=== PATIENT | male | born 2000 | race Caucasian/White ===

== ENCOUNTER 2023-06-15 02:38 | Emergency (ER) | payer MEDICAID, SELFPAY ==
--- NOTE | ~2023-06-15 | XR_ITS ---
EXAMINATION: XR CHEST CLINICAL INFORMATION: Difficulty breathing. COMPARISON: None available. TECHNIQUE: Frontal view of the chest was obtained. FINDINGS: No significant abnormality is noted involving the heart, lungs, mediastinum, bony thorax or soft tissues. XR/XR chest 1V IMPRESSION: Unremarkable examination.
[2023-06-15 02:49] VITALS: BP 117/70; PULSE 75; RESP 20; TEMP 36.7; O2SAT 95; BMI 32.8
[2023-06-15 04:51] VITALS: PULSE 78; RESP 16; O2SAT 96
[2023-06-15] MEDS: Albuterol Sulfate 7.5 MG, Albuterol Sulfate (0.083%) 2.5 MG 10 MG INHALE (04:51)
[2023-06-15] MEDS: predniSONE 10 MG TABLET 50 MG PO (05:05)
--- NOTE | 2023-06-15 05:08 | ED.ASTHMA ---
HPI - Asthma General Chief Complaint: Upper Respiratory Symptoms Stated Complaint: asthma attack Time Seen by Provider: 06/15/23 03:46 Source: patient Mode of arrival: ambulatory History of Present Illness HPI Narrative: 23-year-old male with history of asthma comes in with worsening shortness of breath and wheezing that started at approximately midnight, states he lost his inhaler but denies any other symptoms such as sore throat/ear pain/fever/chills. Related Data Previous Rx's ?Medication ?Instructions ?Recorded albuterol sulfate 90 mcg/actuation 2 puff inhalation Q4-6H PRN 06/15/23 aerosol inhaler (Ventolin HFA) shortness of breath or wheezing #8.5 grams prednisone 50 mg tablet 50 mg PO DAILY 4 days #4 tabs 06/15/23 Allergies Allergy/AdvReac Type Severity Reaction Status Date / Time dog dander Allergy Wheezing Verified 06/15/23 02:51 Review of Systems Review of Systems: Pertinent positives and negatives as stated in HPI [facility] Past Medical History Source: nursing notes reviewed Social History Social History Alcohol intake: never Smoked in Last 30 Days: No Use of substances other than those prescribed or required for medical reasons: Yes Substance Use Type: Marijuana Substance Use Frequency: Socially Last Used Substance: Hours (ago) Any prior treatment program specific to substance use: No Advance Directives: No Advance Directives Information Provided: No Physical Exam Vital Signs: Vital Signs: Last Vital Signs Temp 98.0 F 06/15/23 02:49 Pulse 100 06/15/23 05:26 Resp 20 06/15/23 05:26 BP 117/70 06/15/23 02:49 Pulse Ox 95 06/15/23 02:49 O2 Del Method Room Air 06/15/23 02:49 BMI result Body Mass Index 32.8 VITAL SIGNS: Reviewed. GENERAL: Well developed, well nourished, in no acute distress. HEAD: Normocephalic/atraumatic EYES: PERRLA, EOMI EARS: Ext canals without abnormality, TMs non-bulging and non-erythematous NOSE: Nares patent bilateral OROPHARYNX: no oral lesions noted, posterior pharynx clear and non-erythematous without noted tonsillar enlargement/erythema/exudates NECK: Supple, no adenopathy LUNGS: Decreased bilaterally with trace expiratory wheeze. SpO2<95> CARDIOVASCULAR: Regular rate and rhythm without noted murmurs ABDOMEN: Soft, non-tender, non-distended with bowel sounds. MUSCULOSKELETAL: No tenderness, deformities, or effusions noted on gross inspection. EXTREMITIES: No cyanosis, clubbing or edema. SKIN: Inspection of the skin reveals no rashes NEUROLOGIC: Alert and oriented x 4. Strength and sensation to light touch were grossly intact x 4. Medications Administered Discontinued Medications Generic Name Dose Route Start Last Admin Trade Name Pelon PRN Reason Stop Dose Admin Albuterol Sulfate 7.5 mg/ 10 mg 06/15/23 04:45 06/15/23 04:51 Albuterol Sulfate 2.5 mg INHALE 06/15/23 04:46 10 mg ONCE ONE Administration Albuterol Sulfate 2.5 mg/ 5 mg 06/15/23 05:23 06/15/23 05:25 Albuterol Sulfate 2.5 mg INHALE 06/15/23 05:24 5 mg ONCE ONE Administration Prednisone 50 mg 06/15/23 04:38 06/15/23 05:05 Prednisone 10 Mg Tablet PO 06/15/23 04:39 50 mg ONCE ONE Administration Medical Decision Making Medical Decision Making MDM Narrative: 23-year-old male with history and clinical presentation, DDX: Acute asthma exacerbation. INTERVENTION: ED bronch protocol, prednisone, chest x-ray I reviewed chest x-ray which is negative for infiltrates or venous congestion otherwise my interpretation is in agreement with radiology's impression. 0549: On re-evaluation patient reports improvement and on auscultation of lungs there is good air movement noted with minimal expiratory wheeze, no tachypnea and oxygenating well on room air. Patient is discharged. Differential Diagnosis Differential Diagnoses: The differential diagnosis associated with the presentation includes Please see the discussion above Admission/Observation Consideration of admission/observation: Escalation of care including admission/observation considered Please see the discussions above Radiology Impression Discussion of test interpretation with radiology: I have reviewed the radiologist's reading. Radiologist Impression: Please see the discussion above Critical Care Time Critical Care Time Critical Care Time: Yes Total Critical Care Time: 30 Attestation: I personally attest to this time spent taking care of the patient. Discharge Plan Discharge Clinical Impression: Acute asthma exacerbation Patient Disposition: Home, Self-Care Instructions: Asthma (ED) Additional Instructions: Take medications as directed. Establish care with a primary care doctor. Return to the ER for any worsening symptoms. Prescriptions: New albuterol sulfate [Ventolin HFA] 90 mcg/actuation HFA aerosol inhaler 2 puff inhalation Q4-6H PRN (Reason: shortness of breath or wheezing) Qty: 8.5 0RF prednisone 50 mg tablet 50 mg PO DAILY 4 Days Qty: 4 0RF Print Language: Polish
[2023-06-15] MEDS: Albuterol Sulfate 2.5 MG, Albuterol Sulfate (0.083%) 2.5 MG 5 MG INHALE (05:25)
[2023-06-15 05:26] VITALS: PULSE 100; RESP 20; O2SAT 95
[2023-06-15 05:51] VITALS: BP 129/71; PULSE 89; RESP 18; TEMP 37.1; O2SAT 97
[2023-06-15] MEDS: Albuterol Sulfate 90 MCG 8 GM INHALER 2 PUFF INHALE (05:57)
[2023-06-15 06:18] VITALS: BP 129/71; PULSE 89; RESP 18; TEMP 37.1; O2SAT 97
== END 2023-06-15 06:19 | disposition home or self-care (01) ==
PROVIDERS: Emergency Provider Student in an Organized Health Care Education/Training Program
DX: J45.901 Unspecified asthma with (acute) exacerbation (principal)
CPT/HCPCS: 71045; 94640; 99284; 99285

== ENCOUNTER 2024-05-11 16:45 | Emergency (ER) | payer MEDICAID, SELFPAY | END 2024-05-11 20:19 | disposition left against medical advice (07) | LOC: HO.ED 19:51 | PROVIDERS: Emergency Provider Emergency Medicine | DX: R68.89 Other general symptoms and signs (principal) ==

== ENCOUNTER 2024-05-12 00:38 | Emergency (ER) | payer MEDICAID, SELFPAY ==
--- NOTE | ~2024-05-12 | XR_ITS ---
CLINICAL HISTORY: swelling 3 view right hand Comparison: None Findings: Transverse fracture of the distal shaft of the 5th metacarpal. Distal fragment is angulated moderately towards the volar aspect. Fracture is nondisplaced. No significant arthritic change. No erosions. No radiopaque foreign body. IMPRESSION: Angulated transverse fracture of the distal 5th metacarpal. This document has been electronically signed by: Andre Crystal MD on 05/12/2024 01:24:47
[2024-05-12 00:42] VITALS: BP 118/78; PULSE 72; RESP 20; TEMP 36.1; O2SAT 99; BMI 30.1
--- NOTE | 2024-05-12 04:38 | MHC.EDTECH ---
volar splint applied by Dr Manuel.
[2024-05-12 04:40] VITALS: BP 116/75; PULSE 76; RESP 18; TEMP 36.3; O2SAT 98
--- NOTE | 2024-05-12 04:41 | ED.EXTPRO ---
HPI - Extremity Problem General Chief complaint: Extremity Problem Stated complaint: fracture in pinky Time Seen by Provider: 05/12/24 04:26 Source: patient Mode of arrival: ambulatory Limitations: no limitations History of Present Illness ED Provider: Dr. Eunice Manuel HPI Narrative: patient comes to the emergency room complaining of right hand pain on the dorsum. Patient states that earlier today he punched a wall. Denies any other injuries. Related Data Previous Rx's ?Medication ?Instructions ?Recorded albuterol sulfate 90 mcg/actuation 2 puff inhalation Q4-6H PRN 06/15/23 aerosol inhaler (Ventolin HFA) shortness of breath or wheezing #8.5 grams prednisone 50 mg tablet 50 mg PO DAILY 4 days #4 tabs 06/15/23 acetaminophen 500 mg tablet 500 mg PO Q6H PRN fever or pain 05/12/24 #30 tabs ibuprofen 600 mg tablet 600 mg PO Q8H PRN fever or pain 05/12/24 #30 tabs Allergies Allergy/AdvReac Type Severity Reaction Status Date / Time dog dander Allergy Wheezing Verified 05/12/24 00:43 Review of Systems Review of Systems: Constitutional : No Weight loss, No Fever, No Chills, No Night Sweats, No Fatigue, No Malaise ENT/Mouth : No Hearing loss, No Ear Pain, No Nasal Congestion, No Sinus Pain, No Hoarseness, No sore throat, No Rhinorrhea, No Swallowing Difficulty Eyes: No Eye Pain, No Swelling, No Redness, No Foreign Body, No Discharge, No Vision Changes Cardiovascular : No Chest Pain, No SOB, No Dyspnea on Exertion, No Orthopnea, No Edema, No Palpitations Respiratory : No Cough, No Sputum, No Wheezing, No Smoke Exposure, No Dyspnea Gastrointestinal : No Nausea, No Vomiting, No Diarrhea, No Constipation, No abdominal Pain, No Hematochezia, No Melena Genitourinary : no irregular bleeding, No Dysuria, No Urinary Frequency, No Hematuria, No Urinary Incontinence, No Urgency, No Flank Pain, No Urinary Flow Changes, No Hesitancy Musculoskeletal : Complaining of right hand pain and swelling No Myalgias, No Joint Swelling Skin : No Skin Lesions, No rash Neuro : No Weakness, No Numbness, No Paresthesias, No Loss of Consciousness, No Dizziness, No Headache Psych : No Anxiety/Panic, No Depression, No SI/HI/AH/VH, No Social Issues, Heme/Lymph: No Bruising, No Bleeding,No Lymphadenopathy Endocrine : No Polyuria, No Polydipsia, No Temperature Intolerance [facility] Social History Social History Alcohol intake: never Substance Use Type: Marijuana Advance Directives: No Advance Directives Information Provided: Yes Physical Exam Vital Signs: Vital Signs: Last Vital Signs Temp 97.4 F 05/12/24 04:40 Pulse 76 05/12/24 04:40 Resp 18 05/12/24 04:40 BP 116/75 05/12/24 04:40 Pulse Ox 98 05/12/24 04:40 O2 Del Method Room Air 05/12/24 04:40 BMI result Body Mass Index 30.1 Const: Other: Appearance: Alert. Oriented X3. No acute distress. Eyes: Pupils equal, round and reactive to light. ENT: Pharynx normal. Neck: Normal inspection. Neck supple. No lymph nodes noted. No crepitus CVS: Normal heart rate and rhythm. Pulses normal. Normal S1 and S2 Respiratory: No respiratory distress. Breath sounds normal. No Wheezing. No rales Abdomen: Soft and nontender. No rigidity. No distention. Skin: Skin warm and dry. Normal skin color. Normal skin turgor. Extremities: No lower extremity edema. No Lacerations. No Rash. There is swelling on the dorsum of the right hand, pain to palpation over the 5th distal metacarpal Neuro: Oriented X 3. No motor deficit. No sensory deficit. Moving all extremities. No slurred speech. CN 2 through 12 grossly intact Psych: calm, cooperative, normal affect Medical Decision Making Medical Decision Making MDM Narrative: my interpretation of x-ray of the hand: There is a boxer's fracture in the 5th metacarpal patient's hand was put in a splint and instructed to follow-up with orthopedics Independent Interpretation I performed an independent interpretation of an: Plain X-Ray Radiology Impression Discussion of test interpretation with radiology: I have reviewed the radiologist's reading. Radiologist Impression: Transverse fracture of the distal shaft of the 5th metacarpal. Distal fragment is angulated moderately towards the volar aspect. Fracture is nondisplaced. No significant arthritic change. No erosions. No radiopaque foreign body. IMPRESSION: Angulated transverse fracture of the distal 5th metacarpal. Procedures Orthopedic Splinting/Casting Injury #1: Side: right Upper Extremity Injury Location: hand Upper Extremity Immobilizer: volar splint Discharge Plan Discharge Clinical Impression: Boxer's fracture Patient Disposition: Home, Self-Care Instructions: Boxer Fracture (ED) Additional Instructions: Please follow-up with your primary care physician tomorrow. If you have any worsening or new symptoms, please return to the emergency room or call 911 Prescriptions: New ibuprofen 600 mg tablet 600 mg PO Q8H PRN (Reason: fever or pain) Qty: 30 0RF acetaminophen 500 mg tablet 500 mg PO Q6H PRN (Reason: fever or pain) Qty: 30 0RF Rx Instructions: alternate dosing of acetaminophen and ibuprofen No Action albuterol sulfate [Ventolin HFA] 90 mcg/actuation HFA aerosol inhaler 2 puff inhalation Q4-6H PRN (Reason: shortness of breath or wheezing) Qty: 8.5 0RF prednisone 50 mg tablet 50 mg PO DAILY 4 Days Qty: 4 0RF Referrals: Zoya Briggs PA-C [[facility]] - 05/16/24 Stand Alone Forms: Work/School Release Print Language: Mohawk
[2024-05-12 04:47] VITALS: BP 116/75; PULSE 76; RESP 18; TEMP 36.3; O2SAT 98
== END 2024-05-12 04:50 | disposition home or self-care (01) ==
PROVIDERS: Emergency Provider Emergency Medicine
DX: S62.636A Displaced fracture of distal phalanx of right little finger, initial encounter for closed fracture (principal); M79.641 Pain in right hand; X58.XXXA Exposure to other specified factors, initial encounter; Y93.9 Activity, unspecified; Y92.9 Unspecified place or not applicable; Y99.8 Other external cause status
CPT/HCPCS: 29130; 73130; 99282; 99284

== ENCOUNTER → 2024-05-12 00:45 | Outpatient (BNV) | payer MEDICAID, SELFPAY | PROVIDERS: Visit Provider Radiology Diagnostic Radiology | DX: S62.316A Displaced fracture of base of fifth metacarpal bone, right hand, initial encounter for closed fracture (principal) | CPT/HCPCS: 73130 ==

== ENCOUNTER 2024-05-16 09:12 | Outpatient (AMB) | payer MEDICAID, SELFPAY ==
--- NOTE | 2024-05-16 09:20 | MHC.OFFVIS ---
Vital Signs 05/16/24 09:23 Height 5 ft 3 in Weight 170 lb BMI 30.1 Intake Visit Reasons: FC - Right 5th MC Fracture - 05/12/2024 Intake Note: Harry is a 24 year old right hand dominant male who presents today for a fracture care appointment for his right hand. He reports that on 05/12/2024 he punched a wall and had an immediate onset of pain in the hand. Patient reports that he is having continued pain at the base of the 5th digit. Denies numbness and tingling. He takes Ibuprofn for his pain which provides mild relief. He took of his splint last night. Allergies dog dander Allergy (Verified 05/12/24 00:43) Wheezing HPI HPI FC - Right 5th MC Fracture - 05/12/2024: Details: Harry is a 24 year old right hand dominant male who presents today for a fracture care appointment for his right hand. He reports that on 05/12/2024 he punched a wall and had an immediate onset of pain in the hand. Patient reports that he is having continued pain at the base of the 5th digit. Denies numbness and tingling. He takes Ibuprofn for his pain which provides mild relief. He took of his splint last night. [facility] Social History Alcohol intake: never Substance Use Type: Marijuana Physical Exam Vital Signs: BMI result Body Mass Index 30.1 Extrem Other: Patient is alert, oriented, and in no acute distress. Neuro: Normal sensation of the tips of all digits of the right hand at this time Vascular: Cap refill brisk Pain: No tenderness to palpation about the right 5th metacarpal at the level of the fracture ROM: Patient was able to get close to making a closed fist and extend all digits of the right hand fully Skin: No lacerations or abrasions. General: No ecchymosis, erythema, or evidence of infection. Psych: Appears grossly normal Affect normal Attitude cooperative Office Procedures AMB Fracture Care Fracture Billing Code: Fracture Billing Code Casting/Splints 25424-Ojbzcwv Splint Application Procedure code (CPT) selection complete Results Reviewed Results Reviewed: X-rays obtained in the office today and independently reviewed by me, Marco A Palafox PA-C, demonstrate minimally displaced fracture of the right 5th metacarpal neck. Assessment & Plan Assessment & Plan (1) Fracture of fifth metacarpal bone of right hand: Code(s): S62.306A - Unspecified fracture of fifth metacarpal bone, right hand, initial encounter for closed fracture Category: Medical Plan 1. Right 5th metacarpal neck fracture Date of injury 05/11/2024 Patient is educated about this condition Patient was educated about the typical recovery course At this time, patient was informed that he will require no surgery for this injury, and we can treat conservatively Patient was placed into a splint due to the presence of swelling, and will follow-up in 1 week for follow-up and cast placement Patient was amenable to this plan Patient will follow-up in 1 week, sooner with any acute concerns Orders: Orders XR hand RT min 3V Today M79.641 - Pain in right hand Coding Level of Care Code New Pt Level 3 (82676) Diagnoses Fracture of fifth metacarpal bone of right hand S62.306A CPT Codes Fracture Care - Fracture Billing Code: Fracture Billing Code ([id number]) Splint - CPT: 54711-Cdyiblt Splint Application ([id number])
[2024-05-16 09:23] VITALS: BMI 30.1
== END 2024-05-16 10:08 | disposition home or self-care (01) ==
DX: S62.336A Displaced fracture of neck of fifth metacarpal bone, right hand, initial encounter for closed fracture (principal)
CPT/HCPCS: 26600; 99203

== ENCOUNTER 2024-05-16 09:12 | Outpatient (REF) | payer MEDICAID, SELFPAY ==
--- NOTE | ~2024-05-16 | XR_ITS ---
EXAMINATION: XR HAND, RIGHT CLINICAL INFORMATION: M79.641 - Pain in right hand COMPARISON: 05/12/2024. TECHNIQUE: PA, lateral, and oblique views of the right hand. FINDINGS: Redemonstration of a distal fifth metacarpal fracture with volar angulation and minimal impaction. Volar angulation is estimated at approximately 40 degrees, allowing for lack of true lateral. No change in the alignment. Grossly no evidence of healing at this time. Otherwise, no additional fractures. Carpal bones appear intact and normally aligned. Persistent dorsomedial soft tissue swelling. XR/XR hand RT min 3V IMPRESSION: 1. No significant interval change distal fifth metacarpal fracture with volar angulation. Electronically signed by: George Newsome MD 05/17/2024 08:53 AM EDT
== END 2024-05-16 09:13 | disposition home or self-care (01) ==
LOC: HO.HOSX 09:12
DX: M79.641 Pain in right hand (principal); S62.306A Unspecified fracture of fifth metacarpal bone, right hand, initial encounter for closed fracture
CPT/HCPCS: 26600; 73130; 99212

== ENCOUNTER → 2024-05-16 09:39 | Outpatient (BNV) | payer MEDICAID, SELFPAY | PROVIDERS: Visit Provider Radiology Diagnostic Radiology | DX: M79.641 Pain in right hand (principal) | CPT/HCPCS: 73130 ==

== ENCOUNTER 2024-05-23 08:15 | Outpatient (REF) | payer MEDICAID, SELFPAY ==
--- NOTE | ~2024-05-23 | XR_ITS ---
EXAMINATION: XR HAND 3 OR MORE VIEWS RIGHT HISTORY: M79.641 - Pain in right hand COMPARISON: Comparison is made with the prior examination dated 05/16/2024. FINDINGS: Three views of the right hand are submitted. Osseous mineralization is normal. Again seen is an angulated fracture of the 5th metacarpal neck. The appearance is not significantly changed from the prior study. The joint spaces are preserved. The soft tissues are unremarkable. XR/XR hand RT min 3V IMPRESSION: Angulated fracture of the 5th metacarpal neck without change. Electronically signed by: Martinez Lin MD 05/23/2024 11:06 AM EDT
== END 2024-05-23 08:16 | disposition home or self-care (01) ==
LOC: HO.HOSX 08:15
DX: S62.306D Unspecified fracture of fifth metacarpal bone, right hand, subsequent encounter for fracture with routine healing (principal); M79.641 Pain in right hand
CPT/HCPCS: 29085; 73130; 99212

== ENCOUNTER 2024-05-23 08:38 | Outpatient (AMB) | payer MEDICAID, SELFPAY ==
[2024-05-23 08:39] VITALS: BMI 30.1
--- NOTE | 2024-05-23 08:39 | A.OFFVIS_ITS ---
Vital Signs 05/23/24 08:39 Height 5 ft 3 in Weight 170 lb BMI 30.1 Intake Visit Reasons: OV Right 5th MC Fracture - 05/12/2024 Intake Note: Harry is a 24 year old right hand dominant male who presents today for follow up status post right 5th metacarpal fracture, DOI: 05/12/24. At the last visit, patient was placed into a splint due to the presence of swelling with plans to follow-up in 1 week for cast placement. Currently states he has a little pain, he is not able to make a close fist and continues to have swelling. Allergies dog dander Allergy (Verified 05/23/24 08:55) Wheezing HPI HPI OV Right 5th MC Fracture - 05/12/2024: Details: Harry is a 24 year old right hand dominant male who presents today for follow up status post right 5th metacarpal fracture, DOI: 05/12/24. At the last visit, patient was placed into a splint due to the presence of swelling with plans to follow-up in 1 week for cast placement. Currently states he has a little pain, he is not able to make a close fist and continues to have swelling. [facility] Social History Alcohol intake: never Substance Use Type: Marijuana Review of Systems Const All systems reviewed & are unremarkable except as noted in HPI and below Physical Exam Vital Signs: BMI result Body Mass Index 30.1 Extrem Other: Patient is alert, oriented, and in no acute distress. Neuro: Normal sensation of the tips of all digits of the right hand at this time Vascular: Cap refill brisk Pain: No tenderness to palpation about the right 5th metacarpal at the level of the fracture ROM: Patient was able to get close to making a closed fist and extend all digits of the right hand fully Skin: No lacerations or abrasions. General: No ecchymosis, erythema, or evidence of infection. Psych: Appears grossly normal Affect normal Attitude cooperative Office Procedures Casting/Splints 86822-Otpi/Wrist Cast Application Procedure code (CPT) selection complete Results Reviewed Results Reviewed: X-rays obtained in the office today and independently reviewed by me, Marco A Palafox PA-C, demonstrate minimally displaced fracture of the right 5th metacarpal neck. Assessment & Plan Assessment & Plan (1) Fracture of fifth metacarpal bone of right hand: Code(s): S62.306A - Unspecified fracture of fifth metacarpal bone, right hand, initial encounter for closed fracture Category: Medical Plan 1. Right 5th metacarpal neck fracture Date of injury 05/11/2024 Patient is educated about this condition Patient was educated about the typical recovery course At this time, patient was informed that he will require no surgery for this injury, and we can treat conservatively Patient was placed into a cast at this time, as his swelling has improved Patient was educated on proper cast care and precautions Patient will follow-up in 2 weeks with repeat x-rays, anticipate cast removal at that time, sooner with any acute concerns Orders: Orders XR hand RT min 3V Today M79.641 - Pain in right hand Medications: Discontinued prednisone Discontinued Reason: Patient Completed Course 50 mg PO DAILY 4 days 4 tabs 0RF Coding Level of Care Code Global (32388) Diagnoses Fracture of fifth metacarpal bone of right hand S62.306A CPT Codes Casting - CPT: 12111-Pntv/Wrist Cast Application ([id number])
== END 2024-05-23 09:23 | disposition home or self-care (01) ==
LOC: HO.HOS 08:38
DX: S62.306A Unspecified fracture of fifth metacarpal bone, right hand, initial encounter for closed fracture (principal)
CPT/HCPCS: 29085; 99024

== ENCOUNTER → 2024-05-23 08:46 | Outpatient (BNV) | payer MEDICAID, SELFPAY | PROVIDERS: Visit Provider Radiology Diagnostic Radiology | DX: M79.641 Pain in right hand (principal) | CPT/HCPCS: 73130 ==

== ENCOUNTER 2024-06-06 08:53 | Outpatient (REF) | payer MEDICAID, SELFPAY | END 2024-06-06 08:54 | disposition home or self-care (01) | LOC: HO.HOSX 08:53 | DX: Z13.89 Encounter for screening for other disorder (principal) ==

== ENCOUNTER 2024-06-14 09:26 | Emergency (ER) | payer OTHER, SELFPAY ==
[2024-06-14 09:40] VITALS: BP 110/77; PULSE 87; RESP 19; TEMP 36.6; O2SAT 98; BMI 32.4
--- NOTE | 2024-06-14 09:44 | ED.GENADULT ---
HPI - General Adult General Chief complaint: Upper Respiratory Symptoms Stated complaint: Fever, headache Time Seen by Provider: 06/14/24 11:42 Source: patient, RN notes reviewed and old records reviewed Mode of arrival: ambulatory Limitations: no limitations History of Present Illness ED Provider: Gena PARSONS narrative: Patient is a 24-year-old male with history of asthma presenting to the emergency department from [facility] [employer] [facility] with complaint of congestion, cough, sore throat, headache for the past 2 days. Also complains of bilateral ear pain, R>L. Has not taken any [id number] medications for his symptoms. Denies any known sick contacts. Denies any chest pain or palpitations. MD complaint: sore throat, headache Onset (ago): day(s) Related Data Previous Rx's ?Medication ?Instructions ?Recorded albuterol sulfate 90 mcg/actuation 2 puff inhalation Q4-6H PRN 06/15/23 aerosol inhaler (Ventolin HFA) shortness of breath or wheezing #8.5 grams acetaminophen 500 mg tablet 500 mg PO Q6H PRN fever or pain 05/12/24 #30 tabs ibuprofen 600 mg tablet 600 mg PO Q8H PRN fever or pain 05/12/24 #30 tabs albuterol sulfate 90 mcg/actuation 2 puff inhalation Q4-6H PRN 06/14/24 aerosol inhaler shortness of breath or wheezing #6.7 grams amoxicillin 875 mg tablet 875 mg PO BID #14 tabs 06/14/24 prednisone 20 mg tablet 20 mg PO DAILY #5 tabs 06/14/24 Allergies Allergy/AdvReac Type Severity Reaction Status Date / Time dog dander Allergy Wheezing Verified 06/14/24 09:42 Review of Systems Review of Systems: As per HPI Yes all other systems are reviewed and are negative Constitutional: Constitutional: Reports as per HPI [facility] Social History Social History Alcohol intake: never Substance Use Type: Marijuana Do you have a plan to hurt others: No Plan Physical Exam ED Vital Signs: Vital Signs - 24 hr 06/14/24 09:40 Temperature 98 F Pulse Rate 87 Respiratory Rate 19 Blood Pressure 110/77 Pulse Oximetry 98 Oxygen Delivery Method Room Air BMI result Body Mass Index 32.4 Vital signs have been reviewed and appear to be correct. Blood pressure normal. Heart rate normal. Respiratory rate normal. Temperature normal. Oxygen saturation normal. Const General: cooperative, healthy appearing and no acute distress Orientation/consciousness: oriented to person, oriented to place, oriented to time and patient oriented x3 Limitations: no limitations HENMT Head: Yes normocephalic and Yes atraumatic Ears: external ears normal, EAC's normal, mastoids normal bilaterally, no periauricular adenopathy and TM abnormal bulging on the right, erythematous bilateral and with fluid behind the TM on the right General nose exam: Normal external nose present and Normal nasal mucous membranes and turbinates present Face and sinus: Yes face symmetric Mouth: oropharynx normal and moist mucous membranes Throat: Yes uvula midline, Yes abnormal tonsil (erythema, no edema or exudate) and No peritonsillar mass Eyes Pupils: Equal, round and reactive pupils present Neck Neck: Yes normal visual inspection, Yes no lymphadenopathy and Yes supple Resp Effort & Inspection: normal respiratory effort and able to speak in complete sentences Auscultation: clear to auscultation bilaterally and wheezes scattered wheezes Cardio Rate: regular rate Rhythm: regular rhythm Heart sounds: S1 normal heart sound present and S2 normal heart sound present GI Palpation (GI): Soft to palpation and nontender Auscultation: normoactive bowel sounds General: Yes no CVA tenderness Back/Spine/Pelvis Back: no CVA tenderness Skin General skin exam: elasticity normal and turgor normal Neuro General: oriented to person, oriented to place, oriented to time, patient oriented x3, moves all extremities, no focal motor deficits and CN's II-XI intact bilaterally Cranial nerves: Yes Equal, round and reactive pupils present Cognition (Neuro): normal cognition Extrem General: Yes full ROM, Yes no pedal edema and Yes no calf tenderness Psych Mental Status: mental status grossly normal Affect: normal affect Thought process: Normal thought process present Course Course Course Narrative: This is a rapid medical exam performed by Shayne Avery NP: Additional HPI, ROS, PE not included below will be deferred to primary provider. 06/14/24 09:44 patient is a 24-year-old male presenting to emergency department with complaint of congestion, cough, headache for the past 2 days. Plan: Viral and strep swabs Medical Decision Making Medical Decision Making MDM Narrative: Patient is a 24-year-old male presenting to the emergency department from [employer] with complaint of congestion, cough, sore throat, headache for the past 2 days. On exam patient is awake, A+Ox3, VS WNL, afebrile, normal neurological exam without focal deficits, physical exam findings as above. Given reported symptoms and physical exam findings, initial differential includes but is not limited to strep, viral illness, COVID, flu, RSV, asthma exacerbation, otitis media. Strep and viral panels negative. Physical exam findings consistent with AOM right ear. Patient also noted to have scattered wheezes and has history of asthma. He states he currently does not have an inhaler but is borrowing 1 from someone else. Will treat with course of amoxicillin, albuterol inhaler, prednisone. Return precautions discussed. Patient verbalized understanding of and agreement with plan. Differential Diagnosis Differential Diagnoses: The differential diagnosis associated with the presentation includes As per [facility] Lab Data [facility] Lab Attestation statement: I reviewed the patient's lab results. As per [facility] Labs: Lab Results 06/14/24 Range/Units 10:58 Influenza Type A (PCR) NEGATIVE (Negative) Influenza Type B (PCR) NEGATIVE (Negative) RSV RNA Qual (PCR) NEGATIVE (Negative) SARS-CoV-2 RNA (RT-PCR) NEGATIVE (Negative) S. pyogenes GrpA RACHEL Negative (Negative) External Record Review External record reviewed: Inpatient record, Office record and Outpatient record Prescription Management I considered prescription management with: Antibiotic and Other Discharge Plan Discharge Clinical Impression: Otitis media, Upper respiratory infection Patient Disposition: Home, Self-Care Instructions: Ear Infection (ED), Upper Respiratory Infection (DC) Additional Instructions: You were evaluated in the emergency department today for sore throat and cough. Your Covid, flu, RSV, and strep tests were all negative. Your physical exam shows an infection of your right ear. You are being prescribed a course of antibiotics, complete the full course as prescribed even if your symptoms improve. Your cough and sore throat are likely related to a viral illness which will resolve on its own with time and rest. You should ensure adequate fluid intake, and can use Tylenol 650 mg or ibuprofen 600 mg every 6 hours as needed for fever or discomfort. You are being prescribed a short course of prednisone which is a steroid to decrease inflammation as well as an albuterol inhaler for shortness of breath or wheezing. We also recommend using over the counter nasal saline spray to thin your mucous. Please follow-up with your primary care provider this week. Return to the emergency department if you develop chest pain, worsening shortness of breath, difficulty swallowing, fever 100.4? F or greater or any other concerning symptoms. Prescriptions: New amoxicillin 875 mg tablet 875 mg PO BID Qty: 14 0RF albuterol sulfate 90 mcg/actuation HFA aerosol inhaler 2 puff inhalation Q4-6H PRN (Reason: shortness of breath or wheezing) Qty: 6.7 0RF prednisone 20 mg tablet 20 mg PO DAILY Qty: 5 0RF No Action albuterol sulfate [Ventolin HFA] 90 mcg/actuation HFA aerosol inhaler 2 puff inhalation Q4-6H PRN (Reason: shortness of breath or wheezing) Qty: 8.5 0RF ibuprofen 600 mg tablet 600 mg PO Q8H PRN (Reason: fever or pain) Qty: 30 0RF acetaminophen 500 mg tablet 500 mg PO Q6H PRN (Reason: fever or pain) Qty: 30 0RF Rx Instructions: alternate dosing of acetaminophen and ibuprofen Stand Alone Forms: Work/School Release Print Language: Australian
[2024-06-14 11:14] LABS: IDNOW Serial# 55D5AD1C; Strep A Nucleic Acid Negative (Negative)
--- NOTE | 2024-06-14 11:43 | PC.NURSE ---
Sabrina Avery at bedside speaking with patient.
[2024-06-14 11:45] LABS: Influenza A PCR NEGATIVE (Negative); Influenza B PCR NEGATIVE (Negative); Resp Syncy Virus RNA Qual PCR NEGATIVE (Negative); SARS COV2 PCR INHOUSE NEGATIVE (Negative)
[2024-06-14 12:11] VITALS: BP 116/73; PULSE 82; RESP 16; TEMP 36.9; O2SAT 98
[2024-06-14 12:21] VITALS: BP 116/73; PULSE 82; RESP 16; TEMP 36.9; O2SAT 98
== END 2024-06-14 12:24 | disposition home or self-care (01) ==
LOC: HO.ED 12:06
PROVIDERS: Registered Nurse Emergency; Emergency Provider Emergency Medicine
DX: J06.9 Acute upper respiratory infection, unspecified (principal); H66.91 Otitis media, unspecified, right ear; Z03.818 Encounter for observation for suspected exposure to other biological agents ruled out; R50.9 Fever, unspecified; R05.9 Cough, unspecified; J02.9 Acute pharyngitis, unspecified; J45.909 Unspecified asthma, uncomplicated
CPT/HCPCS: 0241U; 87651; 99282; 99283

== ENCOUNTER 2024-06-15 14:08 | Outpatient (REF) | payer OTHER, SELFPAY | END 2024-06-15 14:09 | disposition home or self-care (01) | LOC: HO.HOSX 14:08 | DX: Z13.89 Encounter for screening for other disorder (principal) ==